=== PATIENT | male | born 1995 | race Caucasian/White ===

== ENCOUNTER 2023-05-20 21:40 | Emergency (ER) | payer BC, SELFPAY ==
[2023-05-20 21:45] VITALS: BP 122/74; PULSE 84; RESP 16; TEMP 36.8; O2SAT 99; BMI 27.3
--- NOTE | 2023-05-20 22:01 | ED_ITS ---
HPI - Extremity Injury (Upper) General Chief Complaint: Extremity Injury, Upper Stated Complaint: UPPER EXTREMITY INJURY L HAND Time Seen by Provider: 05/20/23 21:50 Source: patient Mode of arrival: walk-in Limitations: no limitations History of Present Illness HPI narrative: cut dorsum left index finger yesterday with a knife. Accident 12 hours ago. Now presents for treatment. States someone told him he should have it repaired. No numbness or weakness Related Data Home Medications Medication Instructions Recorded Confirmed atomoxetine 10 mg capsule 10 mg PO BID 05/20/23 05/20/23 Allergies Allergy/AdvReac Type Severity Reaction Status Date / Time codeine AdvReac Intermediate Verified 05/20/23 21:53 Review of Systems ROS Status of ROS 10 or more systems reviewed and unremark able except as noted in history and below [facility] Social History Smoking status: Never smoker Exam Constitutional Vital Signs, click to edit/add: Last Vital Signs Temp 98.2 F 05/20/23 21:45 Pulse 84 05/20/23 21:45 Resp 16 05/20/23 21:45 BP 122/74 05/20/23 21:45 Pulse Ox 99 05/20/23 21:45 O2 Del Method Room Air 05/20/23 21:45 Common normals: no apparent distress, average body habitus and oriented x3 Eye Common normals: EOMs intact bilaterally and conjunctivae normal Respiratory Common normals: normal respiratory effort, no retractions and no use of accessory muscles Extremity Other: flap lac dorsum left index Neuro Common normals: oriented x3, CN's II-XII intact bilaterally, moves all extremities, no focal motor deficits and no sensory deficits noted Psych Appearance: grossly normal Course Vital Signs Vital signs: Vital Signs Temperature 98.2 F 05/20/23 21:45 Pulse Rate 84 05/20/23 21:45 Respiratory Rate 16 05/20/23 21:45 Blood Pressure 122/74 05/20/23 21:45 Pulse Oximetry 99 05/20/23 21:45 Oxygen Delivery Method Room Air 05/20/23 21:45 Temperature 98.2 F 05/20/23 21:45 Pulse Rate 84 05/20/23 21:45 Respiratory Rate 16 05/20/23 21:45 Blood Pressure 122/74 05/20/23 21:45 Pulse Oximetry 99 05/20/23 21:45 Oxygen Delivery Method Room Air 05/20/23 21:45 MDM - Extremity Injury (Upper) MDM Narrative Medical decision making narrative: patient cut his left index finger over 12 hours ago. Family advised him to come in. lac repaired as above. Patient given tetanus and augmentin and discharged home Discharge Plan Discharge Chief Complaint: Extremity Injury, Upper Clinical Impression: Finger laceration Prescriptions / Home Meds: No Action atomoxetine 10 mg capsule 10 mg PO BID Instructions: Finger Laceration (ED) Additional Instructions: have wound rechecked in 2-3 days and stitches removed in 10 days Referrals: JESSICA TRIMBLE [Primary Care Provider] - 1 week Procedures ED Procedure Instructions Procedures Procedures: flap lac repair. left index finger btw PIP and DIP joints. SQ exposure. No FB. 1% lido, betadine and saline. closed with # 4 3.0 nylon stitches. No complications
[2023-05-20] MEDS: AMOXICILLIN/POTASSIUM CLAV 1 TAB TABLET PO (22:17)
[2023-05-20] MEDS: ADACEL DIPH,PERTUSS(ACELL),TET VAC/PF 0.5 ML ADULT SYRINGE IM (22:17)
[2023-05-20] MEDS: LIDOCAINE HCL 1% 100 MG/10 ML MDV INJ (22:34)
[2023-05-20] MEDS: SODIUM CHLORIDE 0.9% IRRIG SOLUTION 1,000 ML BOTTLE 1000 ML IRR (22:41)
== END 2023-05-20 23:00 | disposition home or self-care (01) ==
PROVIDERS: Emergency Provider Internal Medicine; PCP Family Medicine
DX: S61.211A Laceration without foreign body of left index finger without damage to nail, initial encounter (principal); W26.0XXA Contact with knife, initial encounter; Z23 Encounter for immunization
CPT/HCPCS: 12001; 90471; 90715; 99284